=== PATIENT | female | born 1950 | race Two or more races ===

== ENCOUNTER 2017-09-04 14:48 | Outpatient (CLI) | payer OTHER | END 2017-09-04 15:15 | disposition home or self-care (01) | LOC: RAD 14:48 | DX: M25.561 Pain in right knee (principal) ==

== ENCOUNTER 2017-09-04 14:55 | Outpatient (CLI) | payer OTHER | END 2017-09-04 15:14 | disposition home or self-care (01) | LOC: MAMO-SONO 14:55 | DX: Z12.31 Encounter for screening mammogram for malignant neoplasm of breast (principal); Z87.898 Personal history of other specified conditions; N61.0 Mastitis without abscess ==

== ENCOUNTER 2018-04-09 15:26 | Outpatient (CLI) | payer OTHER | END 2018-04-09 15:31 | disposition home or self-care (01) | LOC: RAD 15:26 | DX: M25.561 Pain in right knee (principal); M25.562 Pain in left knee ==

== ENCOUNTER → 2018-10-05 | Outpatient (CLI) | payer OTHER | END | disposition home or self-care (01) | LOC: MAMO-SONO 11:01 | DX: Z12.31 Encounter for screening mammogram for malignant neoplasm of breast (principal); Z87.898 Personal history of other specified conditions; N60.11 Diffuse cystic mastopathy of right breast; N60.12 Diffuse cystic mastopathy of left breast; R31.9 Hematuria, unspecified ==

== ENCOUNTER 2020-05-08 11:23 | Outpatient (CLI) | payer OTHER | END 2020-05-08 11:29 | disposition home or self-care (01) | LOC: MAMO-SONO 11:23 | PROVIDERS: ATTEND Specialist | DX: Z12.31 Encounter for screening mammogram for malignant neoplasm of breast (principal); N60.11 Diffuse cystic mastopathy of right breast; N60.12 Diffuse cystic mastopathy of left breast ==

== ENCOUNTER 2021-06-11 11:49 | Outpatient (CLI) | payer OTHER | END 2021-06-11 12:04 | disposition home or self-care (01) | LOC: MAMO-SONO 11:49 | PROVIDERS: ATTEND Specialist | DX: N60.11 Diffuse cystic mastopathy of right breast (principal); N60.12 Diffuse cystic mastopathy of left breast; Z12.31 Encounter for screening mammogram for malignant neoplasm of breast ==

== ENCOUNTER 2022-11-30 09:07 | Outpatient (CLI) | payer OTHER | END 2022-11-30 09:35 | disposition home or self-care (01) | LOC: MAMO-SONO 09:07 | PROVIDERS: ATTEND Specialist | DX: K82.9 Disease of gallbladder, unspecified (principal); K31.84 Gastroparesis; K21.9 Gastro-esophageal reflux disease without esophagitis; K52.0 Gastroenteritis and colitis due to radiation; N60.11 Diffuse cystic mastopathy of right breast; N60.12 Diffuse cystic mastopathy of left breast ==

== ENCOUNTER 2024-03-14 13:44 | Outpatient (CLI) | payer OTHER | END 2024-03-14 13:51 | disposition home or self-care (01) | LOC: MAMO-SONO 13:44 | PROVIDERS: ATTEND Specialist | DX: N60.11 Diffuse cystic mastopathy of right breast (principal); N60.12 Diffuse cystic mastopathy of left breast; Z12.31 Encounter for screening mammogram for malignant neoplasm of breast ==

== ENCOUNTER → 2025-01-22 10:55 | Outpatient (CLI) | payer OTHER | END | disposition home or self-care (01) | LOC: NUCLEAR 10:55 | PROVIDERS: ATTEND Internal Medicine | DX: Z13.820 Encounter for screening for osteoporosis (principal); M81.0 Age-related osteoporosis without current pathological fracture ==